=== PATIENT | male | born 1945 | race Caucasian/White ===

== ENCOUNTER → 2017-03-27 | Outpatient (CLI) | payer MEDICARE | END | disposition home or self-care (01) | LOC: PCVCCLINIC 16:00 | PROVIDERS: ATTEND Internal Medicine | DX: G90.01 Carotid sinus syncope (principal); E78.5 Hyperlipidemia, unspecified; I10 Essential (primary) hypertension; I71.4 Abdominal aortic aneurysm, without rupture; I73.9 Peripheral vascular disease, unspecified; J44.9 Chronic obstructive pulmonary disease, unspecified; Z95.0 Presence of cardiac pacemaker; F17.210 Nicotine dependence, cigarettes, uncomplicated; Z79.01 Long term (current) use of anticoagulants; Z79.899 Other long term (current) drug therapy | CPT/HCPCS: 80061; 93005; G0463 ==

== ENCOUNTER → 2017-10-08 | Outpatient (CLI) | payer MEDICARE ==
--- NOTE | 2017-10-08 09:52 | PCVCIMAG ---
APPROVED REPORT Study performed: 10/08/2017 09:10:47 EXAM: Comprehensive 2D, Doppler, and color-flow Echocardiogram Patient Location: Echo lab Status: routine BSA: 2.18 HR: 71 bpmBP: 138/64 mmHg Rhythm: NSR Other Information Study Quality: Technically Limited Indications Pacemaker Hypertension/HDD Hyperlipidemia. COPD, Smoking, PVD 2D Dimensions LVEF(%): 61.01 (>50%) IVSd: 10.19 (7-11mm)LVOT Diam: 19.79 (18-24mm) LVDd: 49.94 mm PWd: 9.90 (7-11mm)Ascending Ao: 29.54 (22-36mm) LVDs: 33.56 (25-40mm) Left Atrium: 41.12 (27-40mm) Aortic Root: 23.37 mm LV Single Plane 4CH: 48.11 % LV Single Plane 2CH: 55.46 %Cloud's LVEF: 51.78 % Biplane EF: 51.9 % Volumes Left Atrial Volume (Systole) Single Plane 4CH: 41.43 mLSingle Plane 2CH: 49.41 mL LA ESV Index: 22.00 mL/m2 Aortic Valve AoV Peak Yuniel.: 1.49 m/s AO Peak Gr.: 8.82 mmHgLVOT Max P.46 mmHg LVOT Max V: 1.06 m/s TRACY Vmax: 2.18 cm2 Mitral Valve E/A Ratio: 1.1 MV Decel. Time: 189.87 ms MV E Max Yuniel.: 1.13 m/s MV A Yuniel.: 1.07 m/s IVRT: 107.27 ms Pulmonary Valve PV Peak Gr.: 2.63 mmHg Left Ventricle The left ventricle is normal size. There is normal LV segmental wall motion. There is normal left ventricular wall thickness. Left ventricular systolic function is normal. The left ventricular ejection fraction is within the normal range. LVEF is 55%. The left ventricular diastolic function is normal. Right Ventricle The right ventricle is normal size. The right ventricular systolic function is normal. Atria The left atrium size is normal. The right atrium size is normal. Aortic Valve The aortic valve is normal in structure. No aortic regurgitation is present. There is no aortic valvular stenosis. Mitral Valve The mitral valve is normal in structure. There is no mitral valve regurgitation noted. No evidence of mitral valve stenosis. Tricuspid Valve The tricuspid valve is normal in structure. There is no tricuspid valve regurgitation noted. Pulmonic Valve The pulmonary valve is normal in structure. There is no pulmonic valvular regurgitation. Great Vessels The aortic root is normal in size. IVC is normal in size and collapses with >50% inspiration Pericardium There is no pericardial effusion. <Conclusion> Left ventricular systolic function is normal. There is normal LV segmental wall motion. LVEF is 55%. Normal diastolic function The aortic valve is normal in structure. No aortic regurgitation or stenosis The mitral valve is normal in structure. No mitral valve regurgitation noted. Pulmonary artery pressure could not be reliably ascertaind There is no pericardial effusion. Pacing wires in right heart
--- NOTE | 2017-10-08 09:55 | PCVCIMAG ---
APPROVED REPORT Indications Stenosis Doppler Spectral Velocity Analysis PSV / EDVPSV / EDV ECA (R) 116 / 6 cm/sECA (L) 81 / 8 cm/s dICA (R) 85 / 24 cm/sdICA (L) 87 / 16 cm/s Lorenza (R) 77 / 13 cm/smICA (L) 102 / 21 cm/s pICA (R) 87 / 18 cm/spICA (L) 94 / 18 cm/s Bulb (R) 76 / 13 cm/sBulb (L) 82 / 16 cm/s dCCA (R) 87 / 11 cm/sdCCA (L) 92 / 16 cm/s mCCA (R) 102 / 14 cm/smCCA (L) 115 / 14 cm/s Vert (R) 47 / 16 cm/sVert (L) 77 / cm/s ICA/CCA 1.00ICA/CCA 1.11 Basic Measurements Blood Pressure: Pulses: Right Left RightLeft Brachial(Sitting) 138/35myWd669/68mmHgTemporal Real Time B-Mode Imaging Vert. (R)AntegradeVert. (L)Antegrade Findings The right carotid bulb has mild calcified plaque. The right proximal internal carotid artery shows <40% stenosis. The right common carotid artery shows no significant stenosis. The right external carotid artery shows no significant stenosis. The left carotid bulb has mild calcified plaque. The left proximal internal carotid artery shows <40% stenosis. The left common carotid artery shows no significant stenosis. The left external carotid artery shows no significant stenosis. Conclusion 1. Right internal carotid artery stenosis (<40%) 2. Left internal carotid artery stenosis (<40%) 3. Antegrade vertebral flow
--- NOTE | 2017-10-08 11:14 | PCVCIMAG ---
EXAM: AORTOILIAC DUPLEX INDICATION: Peripheral arterial disease FINDINGS: AORTA: Suprarenal aorta measures maximum diameter of 2.9 cm. There is a fusiform infrarenal aortic aneurysm. The infrarenal aorta measures maximum diameter of 3.0 x 4.0 cm. No aortic stenosis. RIGHT COMMON ILIAC ARTERY: No significant stenosis. RIGHT EXTERNAL ILIAC ARTERY: No significant stenosis. LEFT COMMON ILIAC ARTERY: No significant stenosis. LEFT EXTERNAL ILIAC ARTERY: No significant stenosis. IMPRESSION: 4.0 cm infrarenal abdominal aortic aneurysm compares to 3.9 cm on the prior study. LOC:[id number]
== END | disposition home or self-care (01) ==
LOC: PCVCIMAG 07:58
PROVIDERS: ATTEND Internal Medicine
DX: I71.4 Abdominal aortic aneurysm, without rupture (principal); G90.01 Carotid sinus syncope; I10 Essential (primary) hypertension; E78.5 Hyperlipidemia, unspecified; I65.23 Occlusion and stenosis of bilateral carotid arteries; J43.1 Panlobular emphysema; F17.210 Nicotine dependence, cigarettes, uncomplicated; Z79.899 Other long term (current) drug therapy
CPT/HCPCS: 80061; 85610; 93005; 93306; 93880; 93978; G0463

== ENCOUNTER → 2018-04-08 | Outpatient (CLI) | payer MEDICARE | END | disposition home or self-care (01) | LOC: PCVCCLINIC 14:48 | DX: I10 Essential (primary) hypertension (principal); I71.4 Abdominal aortic aneurysm, without rupture; G90.01 Carotid sinus syncope; E78.5 Hyperlipidemia, unspecified; I65.23 Occlusion and stenosis of bilateral carotid arteries; J43.1 Panlobular emphysema; F17.210 Nicotine dependence, cigarettes, uncomplicated; D68.9 Coagulation defect, unspecified; Z79.01 Long term (current) use of anticoagulants; Z79.899 Other long term (current) drug therapy; Z68.38 Body mass index [BMI] 38.0-38.9, adult | CPT/HCPCS: 80061; 85610; 93005; G0463 ==

== ENCOUNTER → 2018-06-26 | Outpatient (CLI) | payer MEDICARE ==
--- NOTE | 2018-06-26 15:02 | PCVCIMAG ---
EXAM: LEFT LOWER EXTREMITY ARTERIAL DUPLEX INDICATION: Peripheral Arterial Disease. Leg pain. FINDINGS: Left Leg: Common femoral and profunda femoral arteries are patent. Increased systolic velocity 294 cm/s mid/distal [place] superficial femoral artery consistent with 70% stenosis. Popliteal artery is patent. The anterior tibial and posterior tibial arteries are patent. Peroneal artery is occluded. IMPRESSION: 70% stenosis mid [place] left superficial femoral artery. LOC:OFFICE
== END | disposition home or self-care (01) ==
LOC: PCVCIMAG 12:42
PROVIDERS: ATTEND Internal Medicine
DX: I73.9 Peripheral vascular disease, unspecified (principal)
CPT/HCPCS: 93926

== ENCOUNTER → 2018-07-13 | Outpatient (CLI) | payer MEDICARE | END | disposition home or self-care (01) | LOC: PCVCCLINIC 16:15 | PROVIDERS: ATTEND Nuclear Medicine Nuclear Cardiology | DX: I73.9 Peripheral vascular disease, unspecified (principal); I71.4 Abdominal aortic aneurysm, without rupture; I10 Essential (primary) hypertension; J43.1 Panlobular emphysema; E78.00 Pure hypercholesterolemia, unspecified; I87.2 Venous insufficiency (chronic) (peripheral); F17.210 Nicotine dependence, cigarettes, uncomplicated; R06.09 Other forms of dyspnea; Z79.899 Other long term (current) drug therapy | CPT/HCPCS: G0463 ==

== ENCOUNTER → 2018-07-20 | Outpatient (CLI) | payer MEDICARE ==
--- NOTE | 2018-07-20 18:31 | PCVCIMAG ---
EXAM: BILATERAL SUPERFICIAL VENOUS DUPLEX INDICATION: Leg pain and swelling. FINDINGS: Right leg: No thrombus in the common femoral, main femoral, or popliteal veins. These veins are compressible. Right Great Saphenous Vein: The surgically absent throughout its length. Right Small Saphenous Vein: At the saphenopopliteal junction the diameter is 4.2 mm, and in the calf it is 5.1 mm. There is not significant venous insufficiency/reflux throughout. Venous insufficiency/reflux duration is 0 seconds. There is not a cranial extension present. Left leg: No thrombus in the common femoral, main femoral, or popliteal veins. These veins are compressible. Left Great Saphenous Vein: At the saphenofemoral junction the diameter is 10.9 mm, in the mid thigh it is 6.6 mm, and in the calf it is 5.0 mm. There is not significant venous insufficiency/reflux throughout. Venous insufficiency/reflux duration is 0.3 seconds. Left Small Saphenous Vein: At the saphenopopliteal junction the diameter is 3.1 mm, and in the calf it is 6.0 mm. There is not significant venous insufficiency/reflux throughout. Venous insufficiency/reflux duration is 0 seconds. There is not a cranial extension present. IMPRESSION: Right Great Saphenous Vein: Surgically absent. Right Small Saphenous Vein: No significant venous insufficiency/reflux is present as noted above. Left Great Saphenous Vein: No significant venous insufficiency/reflux is present as noted above. Left Small Saphenous Vein: No significant venous insufficiency/reflux is present as noted above. LOC:[place] [id number]
== END | disposition home or self-care (01) ==
LOC: PCVCIMAG 13:03
PROVIDERS: ATTEND Nuclear Medicine Nuclear Cardiology
DX: M79.604 Pain in right leg (principal); M79.605 Pain in left leg; M79.89 Other specified soft tissue disorders
CPT/HCPCS: 93970

== ENCOUNTER → 2018-08-03 | Outpatient (CLI) | payer MEDICARE ==
[~2018-08-03] MED LIST: CLOPIDOGREL BISULFATE 75 MG TABLET ONE; DIAZEPAM 10 MG TABLET. ONE; EPTIFIBATIDE BOLUS 2,000 MCG/ML 10ML VIAL. IV ONE; HEPARIN SODIUM 5,000 UNIT/ML VIAL for PCVC. ONE; HEPARIN for ARTERIAL LINE 1,500 ML ONE; IODIXANOL 270 MG/ML 100 ML VIAL. ONE; IOHEXOL 350 MG/ML 100 ML VIAL. ONE; IV NORMAL SALINE 1000ML BAG 1,000 ML ONE; LIDOCAINE 1%/EPI 1:100,000 20 ML VIAL. ONE; MIDAZOLAM HCL/PF 2 MG/2 ML VIAL. ONE; WATER FOR INJECTION,STERILE 20 ML VIAL. IJ ONE; ceFAZolin SODIUM 1 GM VIAL ONE; fentaNYL PF VIAL 100 MCG/2 ML VIAL ONE
--- NOTE | 2018-08-03 14:31 | PCVCINTER ---
EXAM: 1. AORTOGRAM AND BILATERAL LOWER EXTREMITY RUNOFF ANGIOGRAM 2. BILATERAL RENAL ANGIOGRAPHY 3. LEFT SUPERFICIAL FEMORAL ARTERY DRUG COATED BALLOON ANGIOPLASTY. INDICATION: Peripheral arterial disease. Coronary artery disease. Left leg claudication. Hypertension. Renal atherosclerosis. No prior catheter based angiographic study is available. A full diagnostic angiogram study is performed today and the decision to intervene is based on this diagnostic study. PROCEDURE: Procedure and risks of angiography intervention is appropriate including limb loss stroke and were discussed with the patient's family and consent obtained. The patient's right groin was prepped in the normal sterile fashion. IV conscious sedation was used throughout procedure with appropriate monitoring from 11:15 AM through 12:15 PM. Ultrasound was used to interrogate the right groin and showed the right common femoral artery to be patent. A permanent spot film was obtained. Under ultrasound guidance access into the right common femoral artery was obtained and a 5 [place] sheath was placed. Through this a 5 [place] flush catheter was placed into the abdominal aorta at the level of the renal arteries and AP aortogram was performed. Catheter was positioned at the aortic bifurcation and both oblique views of the pelvis were obtained. Catheter was positioned into the right external iliac artery and right leg runoff angiography was performed. Catheter was exchanged for a visceral catheter was placed into the right renal arteries and right renal angiograms obtained. Catheter was placed into the the left renal arteries and left renal angiograms were obtained. Catheter was advanced to the level of the left external iliac artery and left leg runoff angiography was obtained. Patient was given 4500 units of heparin. A 6 Guinean crossover sheath was placed via the right groin to the level of the left common femoral artery. Drug coated balloon angioplasty of the left superficial femoral artery was carried out with a 6 x 40 Summly Effie [employer]ero [employer] catheter. Follow-up angiogram was performed. Catheters and wires removed. Sheath was removed and hemostasis obtained using the FISH device. No immediate complications. FINDINGS: Aortogram: There is one right and 2 left renal arteries. Moderate plaque infrarenal abdominal aorta with mild ectasia. Prior duplex study shows a infrarenal 4.0 cm aneurysm. Pelvis: 30% stenosis origin right common iliac artery. Vessel otherwise patent. Ulcerated plaque mid left common iliac artery without significant stenosis. Left internal iliac artery is occluded. Right internal iliac artery is patent. The right and left external iliac arteries are patent. Moderate plaque right common femoral artery. The profunda femoral arteries patent. Left common femoral and profunda femoral arteries are patent. Right renal artery: Minimal plaque proximal vessel does not cause significant stenosis. Left renal artery: There are 2 left renal arteries with the lower renal artery being a smaller accessory renal artery. Both arteries show adequate patency. Right leg: Long segment occlusion of the [place] superficial femoral artery. There is a large widely patent [id number] popliteal artery bypass graft. Mid and lower [place] popliteal artery is patent. Satisfactory three-vessel runoff. Occlusion of the dorsalis pedis. Left leg: Moderate plaque throughout the [place] superficial femoral artery. Shelflike plaque in the mid [place] superficial femoral artery causing 70% stenosis and this corresponds the area of increased velocity of 296 cm/s on recent duplex study. [place] popliteal artery is patent. Satisfactory three-vessel runoff into the foot. The dorsalis pedis and plantar arteries are satisfactory. Left superficial femoral artery: Following procedure as above good patency is been restored throughout. IMPRESSION: Shelflike moderate stenosis mid [place] left superficial femoral artery was treated with drug coated balloon angioplasty with good patency restored. Previous right [id number] popliteal artery bypass graft maintaining excellent patency. LOC:[id number]
--- NOTE | 2018-08-04 12:40 | PCVCINTER ---
APPROVED REPORT Study performed: 08/03/2018 11:03:22 Patient Details Patient Status: Out-Patient Room #: 3 The patient is a 73 year-old Male Event Personnel Jeannine Balbuena MD, Mallika Gant RT(R)(), Richard Wheatley RT(R), Chapo Toro RN Risk Factors Arterial HypertensionDysplipidemia (Type: 1)Obesity, Peripheral Vascular Disease, Chronic Lung DiseaseHypercholesterolemia, Last Creatanine 1.6Tobacco History (Current/Recent(w/in 1 year)) Previous Procedures/Diagnoses Previous Vascular Surgery, PVD, Chronic lung disease->COPD, Hypertension Procedure Narrative The patient was brought electively to the Cardiac Catheterization Laboratory and was prepped and draped in a sterile manner. A 6F sheath was inserted into the right femoral artery. Coronary angiography was performed using coronary diagnostic catheters. The right coronary system was accessed and visualized with a JR4 catheter. The left coronary system was accessed and visualized with a JL4 catheter. The left ventricle was accessed and visualized with a Angled Pigtail catheter. Left ventricular/Aortic Valve gradient assessed via catheter pullback. Left ventriculogram was performed in REYES projection. Closure device was deployed with a 6 Fr FISH. The patient tolerated the procedure well and there were no complications associated with the procedure. There was no hematoma. Coronary Angiography The patient's coronary anatomy is left dominant. Diagnostic Cath Left MainNormal left main LADMild proximal LAD plaquing Diagonal 140-50% proximal, small first diagonal branch stenosis CircumflexThe proximal circumflex exhibited a calcified 95% subtotal stenosis The mid circumflex coronary exhibited a long subtotaled stenosis before the origin of a large second marginal branch. The distal circumflex appeared to be well collateralized by left to left collateralization [id number], proximal first marginal branch with mild 30-40% proximal plaquing Right CoronaryOccluded proximal right coronary. Fairly extensive left to right collateralization to the distal right coronary Left Ventriculography The left ventricle is normal in size with abnormal contractility. The left ventricular ejection fraction is estimated to be 45-50%. Left ventricular wall motion abnormalities are present. There is no mitral insufficiency. Hypokinesis involving the base to mid portions of the inferior wall Hemodynamics The aortic pressure is 136/47 mmHg with a mean of 85 mmHg. The left ventricular pressure is 134/1 mmHg with a mean of 12 mmHg. Conclusion 1. Mild left ventricular dysfunction with hypokinesis involving the base and mid portions of the inferior wall. Ejection fraction 45-50%. 2. Normal left main 3. Mild LAD plaquing 4. Severe sequential proximal and mid circumflex disease with distal left to left collateralization 5. Occluded right coronary with [id number] collateralization. Recommendations Smoking Cessation Cardiac Rehabilitation Referral Aggressive Medical Therapy
== END | disposition home or self-care (01) ==
LOC: PCVCINTER 13:01
PROVIDERS: ATTEND Nuclear Medicine Nuclear Cardiology
DX: I70.212 Atherosclerosis of native arteries of extremities with intermittent claudication, left leg (principal); I25.10 Atherosclerotic heart disease of native coronary artery without angina pectoris; I70.1 Atherosclerosis of renal artery; I70.0 Atherosclerosis of aorta; I10 Essential (primary) hypertension; J44.9 Chronic obstructive pulmonary disease, unspecified
CPT/HCPCS: 36252; 37224; 75716; 76937; 93458; C1725; C1751; C1760; C1769; C1894; C2623; J1644; J2250; J3010; J3490; J7030; Q9967; 99152; 99153; J0690; J1327

== ENCOUNTER → 2018-10-09 | Outpatient (CLI) | payer MEDICARE | END | disposition home or self-care (01) | LOC: PCVCCLINIC 15:17 | PROVIDERS: ATTEND Internal Medicine | DX: I25.10 Atherosclerotic heart disease of native coronary artery without angina pectoris (principal); I71.4 Abdominal aortic aneurysm, without rupture; I10 Essential (primary) hypertension; I65.23 Occlusion and stenosis of bilateral carotid arteries; J43.1 Panlobular emphysema; F17.210 Nicotine dependence, cigarettes, uncomplicated; E78.5 Hyperlipidemia, unspecified; G90.01 Carotid sinus syncope | CPT/HCPCS: 36415; 80061; 93005; 93279; G0463 ==

== ENCOUNTER → 2019-04-30 | Outpatient (CLI) | payer MEDICARE | END | disposition home or self-care (01) | LOC: PCVCCLINIC 10:00 | PROVIDERS: ATTEND Internal Medicine | DX: I25.10 Atherosclerotic heart disease of native coronary artery without angina pectoris (principal); I10 Essential (primary) hypertension; E78.5 Hyperlipidemia, unspecified; J43.1 Panlobular emphysema; I73.9 Peripheral vascular disease, unspecified; F17.210 Nicotine dependence, cigarettes, uncomplicated; I65.23 Occlusion and stenosis of bilateral carotid arteries; Z95.0 Presence of cardiac pacemaker | CPT/HCPCS: 36415; 80061; 85610; 93280; G0463 ==

== ENCOUNTER → 2019-11-01 | Outpatient (CLI) | payer MEDICARE ==
--- NOTE | 2019-11-01 10:39 | PCVCIMAG ---
APPROVED REPORT Indications Stenosis Current Smoker Risk Factors Hypertension: Diabetes Doppler Spectral Velocity Analysis PSV / EDVPSV / EDV ECA (R) 70 / 0 cm/sECA (L) 92 / 0 cm/s dICA (R) 73 / 30 cm/sdICA (L) 74 / 16 cm/s Lorenza (R) 96 / 27 cm/smICA (L) 93 / 25 cm/s pICA (R) 98 / 24 cm/spICA (L) 78 / 18 cm/s Bulb (R) 70 / 16 cm/sBulb (L) 97 / 15 cm/s dCCA (R) 65 / 14 cm/sdCCA (L) 101 / 15 cm/s mCCA (R) 89 / 13 cm/smCCA (L) 127 / 20 cm/s Vert (R) 40 / 11 cm/sVert (L) 84 / 22 cm/s ICA/CCA 1.51ICA/CCA 0.92 Basic Measurements Blood Pressure: Pulses: Right Left RightLeft Brachial(Sitting) 158/66bkJx653/86mmHgTemporal Real Time B-Mode Imaging Vert. (R)AntegradeVert. (L)Antegrade Findings The right carotid bulb has moderate calcified plaque. The right proximal internal carotid artery shows <40% stenosis. The right common carotid artery shows no significant stenosis. The right external carotid artery shows no significant stenosis. The left carotid bulb has mild calcified plaque. The left proximal internal carotid artery shows <40% stenosis. The left common carotid artery shows no significant stenosis. The left external carotid artery shows no significant stenosis. Conclusion 1. Right internal carotid artery stenosis (<40%). 2. Left internal carotid artery stenosis (<40%). 3. Antegrade vertebral flow.
--- NOTE | 2019-11-01 10:47 | PCVCIMAG ---
APPROVED REPORT Study performed: 11/01/2019 09:58:11 EXAM: Comprehensive 2D, Doppler, and color-flow Echocardiogram Patient Location: Echo lab Status: routine BSA: 2.17 HR: 75 bpmBP: 158/70 mmHg Rhythm: NSR Other Information Study Quality: Adequate Risk Factors: Cardiac Risk Factors: Smoking Indications Pacemaker CAD 2D Dimensions IVSd: 12.12 (7-11mm) LVDd: 48.98 mm PWd: 11.32 (7-11mm)Ascending Ao: 29.93 (22-36mm) LVDs: 40.90 (25-40mm) Left Atrium: 44.82 (27-40mm) Aortic Root: 31.93 mm LV Single Plane 4CH: 44.99 % LV Single Plane 2CH: 52.79 % Biplane EF: 49.4 % Volumes Left Atrial Volume (Systole) Single Plane 4CH: 93.35 mLSingle Plane 2CH: 98.46 mL LA ESV Index: 45.00 mL/m2 Aortic Valve AoV Peak Yuniel.: 1.42 m/s AO Peak Gr.: 8.10 mmHgLVOT Max P.46 mmHg LVOT Max V: 1.06 m/s Mitral Valve E/A Ratio: 0.8 MV Decel. Time: 220.43 ms MV E Max Yuniel.: 0.75 m/s MV A Yuniel.: 0.92 m/s IVRT: 107.27 ms Pulmonary Valve PV Peak Yuniel.: 1.02 m/sPV Peak Gr.: 4.13 mmHg Pulmonary Vein P Vein S: 0.32 m/sP Vein A: 0.36 m/s P Vein D: 0.40 m/sP Vein A Dur.: 141.9 msec P Vein S/D Ratio: 0.80 Tricuspid Valve TR Peak Yuniel.: 2.53 m/s TR Peak Gr.: 25.57 mmHg Left Ventricle The left ventricle is normal size. Hypokinesis of the base of the inferior wall. Borderline concentric left ventricular hypertrophy. Left ventricular systolic function is at the lower limits of normal. LVEF is 50%. Mild diastolic dysfunction is present (impaired relaxation pattern). Right Ventricle The right ventricle is normal size. The right ventricular systolic function is normal. Pacemaker lead is present in the right ventricle. Atria Left atrium is moderately dilated. Right atrium is mildly dilated. A pacemaker is seen in the right atrium consistent with history. Aortic Valve The aortic valve is mildly calcified. No aortic regurgitation is present. There is no aortic valvular stenosis. Mitral Valve Mild mitral annular calcification Mild mitral regurgitation. No evidence of mitral valve stenosis. Tricuspid Valve The tricuspid valve is normal in structure. Mild tricuspid regurgitation with PAP of 32 mmHg. Pulmonic Valve The pulmonary valve is normal in structure. There is no pulmonic valvular regurgitation. Great Vessels The aortic root is normal in size. IVC is normal in size and collapses >50% with inspiration. Pericardium There is no pericardial effusion. There is no pleural effusion. <Conclusion> Left ventricular systolic function is at the lower limits of normal. LVEF is 50%. Hypokinesis of the base of the inferior wall. Mild diastolic dysfunction is present (impaired relaxation pattern). Left atrium is moderately dilated. The aortic valve is mildly calcified. No aortic regurgitation or stenosis. Mild mitral annular calcification. Mild mitral regurgitation. Mild tricuspid regurgitation with pulmonary artery pressure of 32 mmHg. There is no pericardial effusion.
== END | disposition home or self-care (01) ==
LOC: PCVCIMAG 09:30
PROVIDERS: ATTEND Internal Medicine
DX: I08.1 Rheumatic disorders of both mitral and tricuspid valves (principal); R94.31 Abnormal electrocardiogram [ECG] [EKG]; I65.23 Occlusion and stenosis of bilateral carotid arteries; I73.9 Peripheral vascular disease, unspecified; J43.9 Emphysema, unspecified; I10 Essential (primary) hypertension; E78.5 Hyperlipidemia, unspecified; I25.10 Atherosclerotic heart disease of native coronary artery without angina pectoris; Z95.0 Presence of cardiac pacemaker; F17.210 Nicotine dependence, cigarettes, uncomplicated; Z82.49 Family history of ischemic heart disease and other diseases of the circulatory system; Z79.01 Long term (current) use of anticoagulants; Z79.899 Other long term (current) drug therapy
CPT/HCPCS: 36415; 80061; 93005; 93280; 93306; 93880; G0463